=== PATIENT | female | born 1930 | race Caucasian/White ===

== ENCOUNTER 2016-07-12 13:16 | Emergency (ER) | payer MEDICARE, OTHER ==
[2016-07-12 13:55] VITALS: BP 101/54
--- NOTE | 2016-07-12 15:28 | EDM.PDOC ---
[id number] 4d DEHYDRATED Time Seen by Provider: 07/12/16 15:28 - History of Present Illness INITIAL COMMENTS - FREE TEXT/NARRATIVE: Patient at assisted living and the nurse sent her in because she was concerned about dehydration, since the patient was less active. The patient says she got dressed every day and was just feeling lazy. She has been eating and drinking normally. She has had no chest pain or shortness of breath, abdominal pain, nausea, vomiting or diarrhea. No fever. No viral URI symptoms. She was feeling well. Onset: Today Quality: Reports: Other (decreased activity noted by assisted living nursing ) Severity: Mild Improves with: Reports: None Worsens with: Reports: None Associated Symptoms: Reports: No Other Symptoms - Related Data Allergies Allergy/AdvReac Type Severity Reaction Status Date / Time amoxapine Allergy Cannot Verified 07/26/14 11:12 Remember amoxicillin Allergy Rash Verified 07/26/14 11:12 Home Meds: Home Meds Acetaminophen [Tylenol Extra Strength] 1,000 mg PO Q6H 07/26/14 [History] Calcium Carbonate/Vitamin D3 [Calcium 600 + Vit D Tablet] 1 tab PO DAILY [History] Levothyroxine 1.5 tab PO DAILY 07/26/14 [History] Lutein/Minerals/Vit A,C & E [I-Maria Antonia] 1 tab PO DAILY 07/26/14 [History] Metoprolol Tartrate 1 tab PO BID 07/26/14 [History] Multivitamin [Multi-Vitamin Daily] 1 tab PO DAILY 07/26/14 [History] Simvastatin [Simvastatin] 10 mg PO BEDTIME 07/26/14 [History] Tolterodine Tartrate [Tolterodine Tartrate ER] 2 mg PO ASDIRECTED 07/12/16 [ History] Warfarin [Coumadin] 2 mg PO DAILY 07/12/16 [History] Past Medical History Cardiovascular History: Reports: Afib, High Cholesterol, Hypertension Musculoskeletal History: Reports: Osteoporosis Endocrine/Metabolic History: Reports: Hypothyroidism - Past Surgical History Musculoskeletal Surgical History: Reports: Other (See Below) Other Musculoskeletal Surgeries/Procedures:: polymyalagia rheumatica Social & Family History - Family History Family Medical History: Noncontributory - Tobacco Use Smoking Status *Q: Never Smoker - Caffeine Use Caffeine Use: Reports: Coffee - Alcohol Use Days Per Week of Alcohol Use: 0 - Recreational Drug Use Recreational Drug Use: No ED ROS GENERAL - Review of Systems Review Of Systems: See Below Constitutional: Reports: No Symptoms HEENT: Reports: No Symptoms Respiratory: Reports: No Symptoms Cardiovascular: Reports: No Symptoms GI/Abdominal: Reports: No Symptoms (says last BM was yesterday) : Reports: No Symptoms Musculoskeletal: Reports: No Symptoms (No complaints of joint pain now. Says she has been getting dressed every day.) Skin: Reports: No Symptoms Neurological: Reports: No Symptoms Psychiatric: Reports: No Symptoms ED EXAM, GENERAL - Physical Exam Exam: See Below Exam Limited By: No Limitations General Appearance: Alert, WD/WN, No Apparent Distress Eye Exam: Bilateral Eye: Conjunctival Injection Ears: Normal External Exam, Normal Canal, Hearing Grossly Normal, Normal TMs Ear Exam: Bilateral Ear: Auricle Normal Nose: Normal Inspection, Normal Mucosa, No Blood Throat/Mouth: Normal Inspection, Normal Lips, Normal Teeth, Normal Gums, Normal Oropharynx, Normal Voice, No Airway Compromise Head: Atraumatic, Normocephalic Neck: Non-Tender (wears eye glasses) Respiratory/Chest: No Respiratory Distress, Lungs Clear, Normal Breath Sounds, No Accessory Muscle Use, Chest Non-Tender Cardiovascular: Normal Peripheral Pulses, No Edema Peripheral Pulses: 2+: Carotid (L), Carotid (R), Radial (L), Radial (R) GI/Abdominal: Normal Bowel Sounds, Soft, Non-Tender, No Organomegaly, No Distention, No Abnormal Bruit, No Mass Back Exam: Normal Inspection Extremities: Normal Inspection, Non-Tender, No Pedal Edema Neurological: Alert, Oriented, CN II-XII Intact, Normal Cognition, No Motor/ Sensory Deficits Psychiatric: Normal Affect, Normal Mood Skin Exam: Warm, Dry, Intact, Normal Color, No Rash Lymphatic: No Adenopathy Course - Vital Signs Last Recorded V/S: Last Vital Signs Temp 97.7 F 07/12/16 13:52 Pulse 73 07/12/16 13:52 Resp 12 07/12/16 13:52 BP 101/54 L 07/12/16 13:52 Pulse Ox 99 07/12/16 13:52 - Orders/Labs/Meds Labs: Laboratory Tests 07/12/16 07/12/16 Range/Units 16:17 16:17 WBC 7.3 (5.0-10.0) 10^3/uL RBC 4.91 (4.2-5.4) 10^6/uL Hgb 14.6 (12.0-16.0) g/dL Hct 44.6 (37.0-47.0) % MCV 90.8 (80-100) fL MCH 29.7 (27.0-34.0) pg MCHC 32.7 L (33.0-35.0) g/dL Plt Count 185 (150-450) 10^3/uL Neut % (Auto) 75.4 H (42.2-75.2) % Lymph % (Auto) 15.1 L (20.5-50.1) % [place] % (Auto) 8.9 H (2-8) % Eos % (Auto) 0.5 L (1.0-3.0) % Baso % (Auto) 0.1 (0.0-1.0) % Sodium 137 (135-145) mmol/L Potassium 3.8 (3.6-5.0) mmol/L Chloride 102 (101-111) mmol/L Carbon Dioxide 28.0 (21.0-31.0) mmol/L Anion Gap 10.8 BUN 20 H (7-18) mg/dL Creatinine 1.2 (0.6-1.3) mg/dL Est Cr Clr Drug Dosing 24.92 mL/min Estimated GFR (MDRD) 42 BUN/Creatinine Ratio 16.66 Glucose 93 (74-105) mg/dL Calcium 9.5 (8.4-10.2) mg/dl Total Bilirubin 1.9 H (0.2-1.0) mg/dL AST 28 (10-42) IU/L ALT 16 (10-60) IU/L Alkaline Phosphatase 37 L (42-121) IU/L Total Protein 7.1 (6.7-8.2) g/dl Albumin 4.3 (3.2-5.5) g/dl Globulin 2.8 Albumin/Globulin Ratio 1.54 - Re-Assessments/Exams Free Text/Narrative Re-Assessment/Exam: 07/14/16 17:07 Patient wanted to leave and if her labs were abnormal we would contact her. Departure - Departure Time of Disposition: 16:45 Disposition: Home, Self-Care 01 Condition: good Clinical Impression: Decreased activity - Discharge Information Referrals: Adalberto Mata MD [Primary Care Provider] - Forms: ED Department Discharge Additional Instructions: Take medication as usual. Follow up with your doctor if not feeling better.
== END 2016-07-12 16:20 | disposition home or self-care (01) ==
LOC: DL.ED 13:16
DX: R68.89 Other general symptoms and signs (principal); I48.91 Unspecified atrial fibrillation; E78.00 Pure hypercholesterolemia, unspecified; I10 Essential (primary) hypertension; E03.9 Hypothyroidism, unspecified; Z79.01 Long term (current) use of anticoagulants; Z79.899 Other long term (current) drug therapy; Z88.1 Allergy status to other antibiotic agents; Z88.8 Allergy status to other drugs, medicaments and biological substances
CPT/HCPCS: 36415; 80053; 85025; 99282; 99284

== ENCOUNTER 2016-07-18 16:14 | Observation (INO) | payer MEDICARE, OTHER ==
[2016-07-18] MEDS ORDERED: Ondansetron 4 MG Tab.DIS PO PRN (18:41)
[2016-07-18] MEDS ORDERED: Sodium Chloride 0.9% 1,000 ML IV SCH (18:45)
[2016-07-18] MEDS ORDERED: Acetaminophen 500 MG Tab PO PRN (18:51)
[2016-07-18] MEDS ORDERED: Warfarin 2 MG Tab PO SCH (19:00)
[2016-07-18] MEDS ORDERED: Non-Formulary Medication 1 Each (Warfarin 1 MG) PO SCH (19:00)
[2016-07-18] MEDS ORDERED: Simvastatin 10 MG Tab PO SCH (21:00)
[2016-07-18] MEDS: Metoprolol Tartrate 50 MG Tab PO SCH (21:00)
[2016-07-18] MEDS ORDERED: Heparin Sodium 5,000 Units/ML Vial SUBCUT SCH (22:00)
--- NOTE | 2016-07-19 00:02 | HP ---
{null, CHIEF COMPLAINT: Increasing weakness, tiredness. HISTORY OF PRESENTING ILLNESS: Mrs. Laure Cristina is an 85-year-old female with medical history significant for hypertension; hyperlipidemia; atrial fibrillation, on chronic anticoagulation with Coumadin; history of aortic stenosis; peripheral neuropathy; polymyalgia rheumatica, presented to the clinic today with complaints of increasing weakness and tiredness. The patient is a resident of assisted living facility where she is not taking part in daily activities of living for the last few days and she was not eating well, so the staff got worried about and send her to the clinic. While in the clinic, the patient had extensive workup done which did not show any acute lesions, but as she was increasingly weak, she could not go back to the assisted living facility, needing referral to observation status in the hospital. At this time, the patient says that for the last few days, the patient's stomach was upset, so she did not feel like eating or drinking anything. She was mostly lying down, but she denied any fevers or chills in the last 2 days. No nausea, vomiting, or diarrhea in the last few days. No complaints of chest pain. No complaints of shortness of breath. No complaints of abdominal pain. No complaints of cough with sputum for the last few days. No complaints of burning or micturition. The patient denied any history of chest pains on exertion. No history of dyspnea on exertion. No history of orthopnea or paroxysmal nocturnal dyspnea. The patient denied any history of hematemesis, hematochezia, or melanotic stools. Normal bowel and bladder habits otherwise. REVIEW OF SYSTEMS: A complete review of system including skin, ear, nose, and throat, cardiovascular system, respiratory system, gastrointestinal system, genitourinary system, hematology, oncology, neurology, allergy, immunology, constitutional were all evaluated and were negative except for the said notes. PAST MEDICAL HISTORY: Significant for hypertension;, hyperlipidemia; atrial fibrillation, on chronic anticoagulation with Coumadin; aortic stenosis; polymyalgia rheumatica; peripheral neuropathy; hypothyroidism. PAST SURGICAL HISTORY: Significant for none as per the chart. FAMILY HISTORY: None significant. ALLERGIES: Patient noted to have allergies to amoxicillin and Maxipime. PHYSICAL EXAMINATION: Vital signs: Temperature of 97.8, pulse of 84, blood pressure 153/72, respiratory rate of 20, saturating at 100% on room air. General appearance: Patient is well oriented to time, place, and person. Follows commands spontaneously. Cardiovascular: S1, S2 heard with normal intensity. No gallops. Respiratory: Clear to auscultation bilaterally. No wheeze. No crepitations. Abdomen: Soft. Bowel sounds positive. Nontender. No rigidity. Extremities: No edema in bilateral lower extremities. Neurology: No gross focal neurological deficits. Skin: No acute rash noted. HOME MEDICATIONS: Include: 1. Vitamin C 500 mg daily. 2. Levothyroxine 25 mcg 1-/2 tablet by mouth daily. 3. Metoprolol 50 mg twice a day. 4. Tolterodine ER 2 mg by mouth daily. 5. Coumadin 2 tablets 1 mg each on Friday, Friday, and Friday and one tablet on all other days of the week. 6. Simvastatin 10 mg daily. 7. Calcium with vitamin D tablet daily. 8. Tylenol 500 mg 2 tablets every 6 hours as needed for pain. LABS: As reviewed from the clinic side shows sodium 143, potassium 4.4, chloride 107, bicarb 31.3, glucose 90, creatinine 1.3, calcium 9.5. Alkaline phosphorus 40, total bilirubin 1.5. AST 28, ALT 26. INR 2.9. WBC 5.9, hemoglobin 13.9, hematocrit 42, platelet count 199. Urinalysis negative. Chest x-ray negative for any acute pathology. ASSESSMENT: 1. Generalized weakness. 2. Possible viral syndrome. 3. Hypertension. 4. Hyperlipidemia. 5. Atrial fibrillation, on chronic anticoagulation with Coumadin. 6. Aortic stenosis. 7. Hypothyroidism. PLAN: 1. Generalized weakness. Unsure if patient had any viral syndrome leading to this generalized weakness and myalgias and unable to eat or drink which led to generalized weakness. The patient does not have any obvious source of infection at this time. She will be referred to observation status. We will have her on IV normal saline as she is noted to have slightly elevated creatinine to 1.3 and her baseline is around 1.1-1.3. Keep her hydrated with IV fluids and we will closely follow. 2. Hypertension. Patient's blood pressure seems to be in acceptable range. Continue with current antihypertensive medication. 3. Atrial fibrillation, rate controlled. Continue with Coumadin, pharmacy to dose the Coumadin for therapeutic INR of 2-3. Her INR in the clinic was 2.9. 4. We will have Physical Therapy and Occupational Therapy evaluate and treat the patient in the a.m. to make sure patient does not have any risk for falls. 5. Discussed with the patient regarding the plan of care. 6. Code status. The patient wants to be full code. 7. Discussed with Dr. Adalberto Mata regarding the plan of care. Reviewed the labs and medications. Reviewed the old charts. [facility] /[id number] }
[2016-07-19] MEDS ORDERED: Tolterodine 2 MG Cap.ER PO SCH (09:00)
[2016-07-19] MEDS ORDERED: Calcium Carbonate/Vitamin D3 1250 MG-200 Unit Tab PO SCH (09:00)
[2016-07-19] MEDS ORDERED: Levothyroxine 25 MCG Tab PO SCH (09:00)
[2016-07-19] MEDS ORDERED: Lutein/Minerals/Vit A,C & E Tab PO SCH (09:00)
[2016-07-19] MEDS: Metoprolol Tartrate 50 MG Tab PO SCH (09:36)
[2016-07-19 09:39] VITALS: BP 139/63
[2016-07-19] MEDS ORDERED: Warfarin 2 MG Tab PO SCH (14:00)
--- NOTE | 2016-07-20 05:29 | DISCH ---
{null, ADMITTING DIAGNOSES: 1. Generalized weakness. 2. Dehydration. DISCHARGE DIAGNOSES: 1. Generalized weakness, resolved. 2. Possible viral syndrome, resolved. 3. Dehydration from poor oral intake. HISTORY OF PRESENTING ILLNESS: Mrs. Laure Cristina is an 85-year-old female with medical history significant for hypertension; hyperlipidemia; atrial fibrillation, on chronic anticoagulation with Coumadin; aortic stenosis, admitted to the hospital after she was noted to be increasingly weak and tired at the [facility]. She was having poor oral intake in the last few days. Unsure if patient had any viral syndrome, but she did not have any fevers or chills. She did not have any source of infection identified. She was referred to observation status. She was on IV fluids and increased oral intake, after which her weakness has resolved. The patient is encouraged to have good oral intake. The patient was explained about dehydration and encouraged her to have water everyday. The patient was evaluated by Physical therapy, and did not encounter any problems. She was able to ambulate well without any difficulty. She remained hemodynamically stable on this admission. She is discharged home in stable condition. She is advised to follow with her primary care physician in the next 1-2 weeks' of time. She is discharged back to the assisted living facility. DISCHARGE MEDICATIONS: Include: 1. Tylenol Extra Strength 1000 mg every 6 hours as needed for pain. 2. Vitamin C 500 mg daily. 3. Calcium carbonate with vitamin D one tablet daily. 4. Levothyroxine 1.5 tablet daily. 5. Lutein with minerals and vitamins 1 tablet daily. 6. Metoprolol 50 mg 1 tablet twice a day. 7. Simvastatin 10 mg at bedtime. 8. Tolterodine tartrate 2 mg daily. 9. Coumadin 2 mg on Friday, Friday and Friday and 1 mg on Friday, Friday, and Friday. PHYSICAL EXAMINATION: Vital Signs: On the day of discharge vitals; temperature of 97.3, pulse of 72, respiratory rate of 20, blood pressure 139/63, saturating at 100% on room air. General Appearance: Patient is well oriented to time, place, and person. Follows commands spontaneously. Cardiovascular: S1, S2 heard with normal intensity. No gallops. Respiratory: Clear to auscultation bilaterally. No wheeze. No crepitations. Abdomen: Soft. Bowel sounds positive. Nontender. No rigidity. Extremities: No edema in bilateral lower extremities. NEUROLOGY: No gross focal neurological deficits. CONDITION ON ADMISSION: Poor. CONDITION ON DISCHARGE: Stable. ACTIVITY: As tolerated. DIET: Cardiac healthy diet. FOLLOWUP: With primary care physician as scheduled in the next 1-2 weeks. I spent over 35 minutes of time in evaluating and treating this patient and discussing treatment goals options with the patient and family members at bedside. [facility] /[id number] }
== END 2016-07-19 11:40 | disposition home or self-care (01) ==
LOC: DL.MS 16:14 → INTOOBSV 16:14
PROVIDERS: ADMIT Internal Medicine; ATTEND Internal Medicine
DX: R53.1 Weakness (principal); E86.0 Dehydration; I10 Essential (primary) hypertension; E78.5 Hyperlipidemia, unspecified; Z79.01 Long term (current) use of anticoagulants; Z79.899 Other long term (current) drug therapy; E03.9 Hypothyroidism, unspecified; Z88.1 Allergy status to other antibiotic agents; Z88.8 Allergy status to other drugs, medicaments and biological substances; I48.91 Unspecified atrial fibrillation; I35.0 Nonrheumatic aortic (valve) stenosis
CPT/HCPCS: 96360; 96361; A9270; G0378; G0379; J7030; 97161-GP